=== PATIENT | male | born 1985 | race Caucasian/White ===

== ENCOUNTER → 2017-04-18 | Outpatient (CLI) | payer BC, OTHER | LOC: CIMAGING 12:29 | PROVIDERS: ATTEND Nurse Practitioner Family | DX: N50.811 Right testicular pain (principal) | CPT/HCPCS: 76870-PO ==

== ENCOUNTER → 2017-04-26 | Outpatient (CLI) | payer BC | LOC: FIMAGING 15:41 | PROVIDERS: ATTEND Physician Assistant | DX: M79.642 Pain in left hand (principal) ==